=== PATIENT | female | born 1995 | race Two or more races ===

== ENCOUNTER 2017-08-21 14:22 | Emergency (ER) | payer BC ==
[2017-08-21] MEDS ORDERED: NORMAL SALINE 1000 ML 1,000 ML IV ONE ×2 (14:44→16:41)
[2017-08-21] MEDS ORDERED: ONDANSETRON HCL INJ/PF 4 MG/2 ML SDV IV ONE (14:45)
--- NOTE | 2017-08-21 14:48 | ER Document Report ---
ED Medical Screen (RME) - General Chief Complaint: Abdominal Cramping Stated Complaint: VOMITING,NAUSEA,FEVER,HEADACHE Time Seen by Provider: 08/21/17 14:44 Notes: Patient says that she began having abdominal pain yesterday. It was located in the center of her abdomen but radiated over to the right upper quadrant. Last night, she had diarrhea 5. She has had one episode of vomiting today. Has had fever off and on. She texted her father that she had a fever and when he got home from work around 2 AM, when he checked on her and awakened her, she said she had a "massive" headache which she still has. No one else in her family has been ill. She works at [employer] and no one there has been sick. Patient has a history of having had an endoscopy procedure done in the spring and it was found to be normal. Patient is currently on her menstrual cycle. On no control. No abdominal surgeries. On no prescription medications. TRAVEL OUTSIDE OF THE [place] IN LAST 30 DAYS: No COUNTRY TRAVELED TO/FROM: [place] - Related Data Allergies/Adverse Reactions: No Known Allergies Allergy (Verified 08/21/17 14:26) Past Medical History - Social History Chew tobacco use (# tins/day): No Frequency of alcohol use: Rare Drug Abuse: None Neurological Medical History: Reports: Hx Migraine, Hx Seizures - Times one Renal/ Medical History: Denies: Hx Peritoneal Dialysis Physical Exam - Vital signs Vitals: Temp Pulse Resp BP Pulse Ox 99.1 F 126 H 20 116/66 96 08/21/17 14:27 08/21/17 14:27 08/21/17 14:27 08/21/17 14:27 08/21/17 14:27 Course - Vital Signs Vital signs: Temp Pulse Resp BP Pulse Ox 99.1 F 126 H 20 116/66 96 08/21/17 14:27 08/21/17 14:27 08/21/17 14:27 08/21/17 14:27 08/21/17 14:27
--- NOTE | 2017-08-21 15:14 | ER Document Report ---
ED GI/ - General Chief Complaint: Abdominal Cramping Stated Complaint: VOMITING,NAUSEA,FEVER,HEADACHE Time Seen by Provider: 08/21/17 14:44 Mode of Arrival: Ambulatory Information source: Patient TRAVEL OUTSIDE OF THE [place] IN LAST 30 DAYS: No - HPI Patient complains to provider of: Vomiting - W/ NAUSEA, Other - HEADACHE, FEVER Onset: Yesterday - LATE EVENING, BEGAN W/ FEVER 11 PM, AWAKENED BY H.A. 2 AM. Timing/Duration: Sudden Quality of pain: Achy, Dull Severity at maximum: Moderate Severity in ED: Moderate Context: denies: Bad food, Lifting, Out of the country travel, , Recent trauma Vaginal bleeding (Compared to normal period): None - Related Data Allergies/Adverse Reactions: No Known Allergies Allergy (Verified 08/21/17 14:26) Past Medical History - General Information source: Patient - Social History Smoking Status: Never Smoker Chew tobacco use (# tins/day): No Frequency of alcohol use: Rare Drug Abuse: None Family History: CAD, CVA, DM, Hyperlipidemia, Hypertension, Malignancy, Thyroid Disfunction Patient has suicidal ideation: No Patient has homicidal ideation: No - Past Medical History Cardiac Medical History: Reports: None Pulmonary Medical History: Reports: None EENT Medical History: Reports: None Neurological Medical History: Reports: Hx Migraine, Hx Seizures - Times one Endocrine Medical History: Reports: None Renal/ Medical History: Reports: None. Denies: Hx Peritoneal Dialysis Malignancy Medical History: Reports: None GI Medical History: Reports: None Musculoskeltal Medical History: Reports None Psychiatric Medical History: Reports: None Surgical Hx: Negative Review of Systems - Review of Systems Constitutional: Chills, Fever, Weakness EENT: No symptoms reported Cardiovascular: No symptoms reported Respiratory: No symptoms reported. denies: Cough Gastrointestinal: No symptoms reported, Abdominal pain, Diarrhea Genitourinary: Frequency Female Genitourinary: No symptoms reported Musculoskeletal: No symptoms reported Skin: No symptoms reported Neurological/Psychological: Headaches Physical Exam - Vital signs Vitals: Temp Pulse Resp BP Pulse Ox 99.1 F 126 H 20 116/66 96 08/21/17 14:27 08/21/17 14:27 08/21/17 14:27 08/21/17 14:27 08/21/17 14:27 Interpretation: Tachycardic. No: Tachypneic, Febrile - General General appearance: Appears well, Alert In distress: None - HEENT Head: Normocephalic Eyes: Normal Conjunctiva: Normal Ears: Normal Nasal: Normal Mouth/Lips: Normal Mucous membranes: Dry Pharynx: Normal Neck: Normal, Supple - Respiratory Respiratory status: No respiratory distress Breath sounds: Normal - Cardiovascular Rhythm: Regular Heart sounds: Normal auscultation Murmur: No - Abdominal Inspection: Normal Distension: No distension Bowel sounds: Hypoactive Tenderness: Tender - MILD, MID-ABDOMEN - Back Back: Normal - Extremities General upper extremity: Normal inspection General lower extremity: Normal inspection - Neurological Neuro grossly intact: Yes Cognition: Normal Orientation: AAOx4 - Psychological Associated symptoms: Normal affect, Normal mood - Skin Skin Temperature: Warm Skin Moisture: Dry Skin Color: Normal - NORMAL ORIENTAL COLOR Skin Turgor: Elastic Course - Re-evaluation Re-evalutation: 08/21/17 22:01 Patient states she feels much better. Headache is almost entirely resolved. Results of laboratory and radiographic studies discussed. - Vital Signs Vital signs: Temp Pulse Resp BP Pulse Ox 101.4 F H 126 H 23 H 110/77 97 08/21/17 20:07 08/21/17 14:27 08/21/17 21:11 08/21/17 21:11 08/21/17 21:11 - Laboratory Result Diagrams: 08/21/17 15:34 08/21/17 15:34 Laboratory results interpreted by me: 08/21/17 08/21/17 08/21/17 14:51 15:34 15:34 WBC 12.2 H RBC 5.38 H Hgb 9.1 L Hct 29.4 L MCV 55 L MCH 16.9 L MCHC 31.0 L RDW 24.6 H Seg Neuts % (Manual) 86 H Band Neutrophils % 1 L Lymphocytes % (Manual) 10 L Abs Neuts (Manual) 10.6 H Potassium 3.5 L Carbon Dioxide 21 L Glucose 111 H Total Bilirubin 2.2 H Direct Bilirubin 0.7 H Total Protein 8.8 H Urine Protein 30 H Urine Ketones TRACE H Urine Blood MODERATE H Urine Urobilinogen 2.0 H Ur Leukocyte Esterase MODERATE H Discharge - Discharge Clinical Impression: Pyelonephritis, Dehydration Headache Qualifiers: Headache type: unspecified Headache chronicity pattern: episodic headache Intractability: not intractable Qualified Code(s): R51 - Headache Condition: Stable Disposition: HOME, SELF-CARE Instructions: Acetaminophen, Rocephin ([facility]), Nitrofurantoin ([facility]), Dehydration ([facility]), Intravenous (IV) Fluids ([facility]), Pyelonephritis ([facility]) Additional Instructions: REST, DRINK PLENTY OF FLUIDS. TAKE MACROBID DIRECTED. YOU MAY TAKE TYLENOL FOR FEVER CONTROL IF NEEDED. FOLLOW UP WITH YOUR PRIMARY CARE PROVIDER OR RETURN TO E.R. IF PROBLEMS. Prescriptions: Nitrofurantoin/Nitrofuran Mac [Macrobid 100 mg Capsule] 100 mg PO BID #20 capsule
[2017-08-21 15:48] LABS: APPEARANCE,URINE CLOUDY; BILIRUBIN,URINE NEGATIVE (NEGATIVE); GLUCOSE, URINE NEGATIVE (NEGATIVE); KETONES,URINE TRACE mg/dL (NEGATIVE); LEUKOCYTE ESTERASE,URINE MODERATE (NEGATIVE); NITRITE,URINE NEGATIVE (NEGATIVE); PROTEIN,URINE 30 mg/dL (NEGATIVE); URINE SPECIFIC GRAVITY 1.027
[2017-08-21 15:49] LABS: HEMATOCRIT 29.4 % (36.0-47.0); HEMOGLOBIN 9.1 g/dL (12.0-15.5); HGB HCT DIFFERENCE -2.1; MEAN CORPUSCULAR HEMOGLOBIN 16.9 pg (27.0-33.4); RED BLOOD COUNT 5.38 10^6/uL (3.72-5.28); RED CELL DISTRIBUTION WIDTH 24.6 % (11.5-14.0); WHITE BLOOD COUNT 12.2 10^3/uL (4.0-10.5)
[2017-08-21 16:17] LABS: ALANINE AMINOTRANSFERASE 17 U/L (9-52); ALBUMIN 4.7 g/dL (3.5-5.0); ALKALINE PHOSPHATASE 43 U/L (38-126); ANION GAP 13 (5-19); ASPARTATE AMINO TRANSFERASE 25 U/L (14-36); BILIRUBIN,DIRECT 0.7 mg/dL (0.0-0.4); BILIRUBIN,TOTAL 2.2 mg/dL (0.2-1.3); BLOOD UREA NITROGEN 11 mg/dL (7-20); CALCIUM 9.2 mg/dL (8.4-10.2); CARBON DIOXIDE 21 mmol/L (22-30); CHLORIDE 104 mmol/L (98-107); CREATININE RESULT 0.67 mg/dL (0.52-1.25); GLUCOSE 111 mg/dL (75-110); LIPASE 40.2 U/L (23-300); POTASSIUM 3.5 mmol/L (3.6-5.0); SODIUM 137.8 mmol/L (137-145); TOTAL PROTEIN 8.8 g/dL (6.3-8.2)
[2017-08-21 16:22] LABS: MEAN CORPUSCULAR VOLUME 55 fl (80-97)
[2017-08-21 16:26] LABS: BAND NEUTROPHILS % (MANUAL) 1 % (3-5); BASOPHILS % (MANUAL) 0 % (0-2); EOSINOPHILS % (MANUAL) 0 % (0-6); LYMPHOCYTES % (MANUAL) 10 % (13-45); MICROCYTOSIS 4+; TOTAL CELLS COUNTED 100; TOXIC VACUOLATION PRESENT
--- NOTE | 2017-08-21 16:28 | RADIOLOGY REPORT (SQ) ---
EXAM DESCRIPTION: CT HEAD WITHOUT COMPLETED DATE/TIME: 08/21/2017 4:17 pm REASON FOR STUDY: "Massive" headache since 2 AM COMPARISON: 08/11/2015 TECHNIQUE: Axial images acquired through the brain without intravenous contrast. Images reviewed wi th bone, brain and subdural windows. Images stored on PACS. All CT scanners at this facility use dose modulation, iterative reconstruction, and/or weight based d osing when appropriate to reduce radiation dose to as low as reasonably achievable (ALARA). [facility]: Dose Right [facility]: CareDose [facility]: Dose Right [facility]: Teradose 4D [facility]: Alloy Digital RADIATION DOSE: Up-to-date CT equipment and radiation dose reduction techniques were employed. CTDIv ol: 64.6 mGy. DLP: 1163 mGy-cm. mGy. LIMITATIONS: None. FINDINGS: VENTRICLES: Normal size and contour. CEREBRUM: No masses. No hemorrhage. No midline shift. No evidence for acute infarction. Normal gra y/white matter differentiation. No areas of low density in the white matter. CEREBELLUM: No masses. No hemorrhage. No alteration of density. No evidence for acute infarction. EXTRAAXIAL SPACES: No fluid collections. No masses. ORBITS AND GLOBE: No intra- or extraconal masses. Normal contour of globe without masses. CALVARIUM: No fracture. PARANASAL SINUSES: No fluid or mucosal thickening. SOFT TISSUES: No mass or hematoma. OTHER: No other significant finding. IMPRESSION: NORMAL BRAIN CT WITHOUT CONTRAST. EVIDENCE OF ACUTE STROKE: NO. COMMENT: Quality ID # [id number]: Final reports with documentation of one or more dose reduction techniques (e.g., Automated exposure control, adjustment of the mA and/or kV according to patient size, use of iterative reconstruction technique) TECHNICAL DOCUMENTATION: JOB ID: [id number] [employer]- All Rights Reserved
[2017-08-21 16:30] LABS: ANISOCYTOSIS 3+; HYPOCHROMASIA 1+; OVALOCYTES 2+; POIKILOCYTOSIS 2+; POLYCHROMASIA SLIGHT; TARGET CELLS 1+; TEAR DROP CELLS 1+
[2017-08-21 16:33] LABS: SCHISTOCYTES SLIGHT
[2017-08-21] MEDS ORDERED: CEFTRIAXONE 1 GM/D5W RTU 1 GM/50 ML RTUPB IV ONE (16:41)
[2017-08-21] MEDS ORDERED: ACETAMINOPHEN 325 MG TABLET PO ONE (20:07)
--- NOTE | 2017-08-21 21:26 | RADIOLOGY REPORT (SQ) ---
EXAM DESCRIPTION: U/S ABDOMEN COMPLETE W/O DOP COMPLETED DATE/TIME: 08/21/2017 9:14 pm REASON FOR STUDY: ABD PAIN, ANEMIA, ELEVATED BILIRUBIN COMPARISON: None. TECHNIQUE: Dynamic and static grayscale images acquired of the abdomen and recorded on PACS. Additio nal selected color Doppler and spectral images recorded. LIMITATIONS: None. FINDINGS: PANCREAS: No masses. Visualized pancreatic duct normal caliber. LIVER: No masses. Echotexture normal. LIVER VASCULATURE: Normal directional flow of the main portal vein and hepatic veins. GALLBLADDER: No stones. Normal wall thickness. No pericholecystic fluid. ULTRASOUND-DETECTED HARTLEY'S SIGN: Negative. INTRAHEPATIC DUCTS AND COMMON DUCT: CBD and intrahepatic ducts normal caliber. No filling defects. INFERIOR VENA CAVA: Normal flow. AORTA: No aneurysm. RIGHT KIDNEY: Normal size. Normal echogenicity. No solid or suspicious masses. No hydronephros is. No calcifications. LEFT KIDNEY: Normal size. Normal echogenicity. No solid or suspicious masses. No hydronephrosi s. No calcifications. SPLEEN: Normal size. No solid masses. PERITONEAL AND PLEURAL SPACES: No ascites or effusions. OTHER: No other significant finding. IMPRESSION: NORMAL ABDOMINAL ULTRASOUND. TECHNICAL DOCUMENTATION: JOB ID: [id number] [employer]- All Rights Reserved
[2017-08-21 22:48] VITALS: BP 105/58
== END 2017-08-21 22:46 | disposition home or self-care (01) ==
LOC: ER 14:22
DX: N12 Tubulo-interstitial nephritis, not specified as acute or chronic (principal); E86.0 Dehydration; R51 Headache; R11.2 Nausea with vomiting, unspecified; R50.9 Fever, unspecified; R53.1 Weakness; R00.0 Tachycardia, unspecified
CPT/HCPCS: 99284; 96361; 96375; 96365; 36415; 87040; 87086; 83690; 84703; 85025; 87088; 80053; 81001; 87186; 76700; 70450; J2405; J7030; J0696